=== PATIENT | female | born 1960 | race Caucasian/White ===

== ENCOUNTER 2018-01-07 22:20 | Emergency (ER) | payer OTHER, MEDICARE ==
[~2018-01-07] VITALS: Ht 157.5 cm; Wt 45.1 kg
[2018-01-07 23:02] LABS: MICROSCOPIC NOT IND
[2018-01-07] MEDS ORDERED: ACETAMINOPHEN 500 MG TABLET ONE (23:08)
[2018-01-07] MEDS ORDERED: IBUPROFEN 200 MG TABLET ONE (23:08)
[2018-01-07 23:17] LABS: CULTURE INDICATED? NO
[2018-01-07 23:23] LABS: BASOPHILS # (AUTO) 0.08 x10^3/uL (0-0.1); BASOPHILS % (AUTO) 1 % (0-1); EOSINOPHILS # (AUTO) 0.29 x10^3/uL (0-0.4); EOSINOPHILS % (AUTO) 5 % (1-7); LYMPHOCYTES # (AUTO) 2.44 x10^3/uL (1-3.4); LYMPHOCYTES % (AUTO) 42 % (22-44); MD NO; MEAN CORPUSCULAR HEMOGLOBIN 32.8 pg (27.0-34.8); MEAN CORPUSCULAR HGB CONC 34.1 g/dL (32.4-35.8); MEAN PLATELET VOLUME 8.5 fL (7.4-10.4); MONOCYTES # (AUTO) 0.48 x10^3/uL (0.2-0.8); MONOCYTES % (AUTO) 8 % (2-9); NEUTROPHILS % (AUTO) 43 % (42-75); PLATELET COUNT 335 x10^3/uL (130-400); RED BLOOD COUNT 3.85 x10^6/uL (3.82-5.3); RED CELL DISTRIBUTION WIDTH 12.7 % (9.6-15.2)
[2018-01-07] MEDS ORDERED: ACETAMINOPHEN 500 MG TABLET PO ONE (23:30)
[2018-01-07] MEDS ORDERED: IBUPROFEN 200 MG TABLET PO ONE (23:30)
[2018-01-07 23:35] LABS: CHLORIDE 107 mmol/L (98-107)
[2018-01-07 23:36] LABS: ALANINE AMINOTRANSFERASE 55 U/L (12-78); ALBUMIN 3.7 g/dL (3.4-5.0); ANION GAP 12 mmol/L (5-15); CALCIUM 8.9 mg/dL (8.5-10.1); CREATININE 0.53 mg/dL (0.55-1.02)
[2018-01-07 23:40] LABS: ALKALINE PHOSPHATASE 76 U/L (45-117); BILIRUBIN,TOTAL 0.2 mg/dL (0.2-1.0); TOTAL PROTEIN 6.8 g/dL (6.4-8.2); TROPONIN I < 0.015 ng/mL (0.000-0.045)
[2018-01-08 00:33] VITALS: BP 95/63
== END 2018-01-08 00:50 | disposition home or self-care (01) ==
LOC: ED 23:59
DX: R07.89 Other chest pain (principal); Z87.891 Personal history of nicotine dependence; Z90.49 Acquired absence of other specified parts of digestive tract
CPT/HCPCS: 36415; 71046; 80053; 81003; 84484; 85025; 85379; 93005; 99285

== ENCOUNTER 2018-09-13 20:54 | Observation (INO) | payer BC, MEDICARE ==
[~2018-09-13] VITALS: Ht 157.5 cm; Wt 43.0 kg
[~2018-09-13 20:54] MED LIST: TRAZ50TA66 PO
[2018-09-13 21:27] LABS: BASOPHILS # (AUTO) 0.06 x10^3/uL (0-0.1); BASOPHILS % (AUTO) 1 % (0-1); EOSINOPHILS # (AUTO) 0.06 x10^3/uL (0-0.4); EOSINOPHILS % (AUTO) 1 % (1-7); LYMPHOCYTES # (AUTO) 3.49 x10^3/uL (1-3.4); LYMPHOCYTES % (AUTO) 55 % (22-44); MD NO; MEAN CORPUSCULAR HEMOGLOBIN 32.4 pg (27.0-34.8); MEAN CORPUSCULAR HGB CONC 33.8 g/dL (32.4-35.8); MEAN CORPUSCULAR VOLUME 95.8 fL (80-100); MEAN PLATELET VOLUME 8.6 fL (7.4-10.4); MONOCYTES # (AUTO) 0.31 x10^3/uL (0.2-0.8); MONOCYTES % (AUTO) 5 % (2-9); NEUTROPHILS # (AUTO) 2.45 x10^3/uL (1.8-6.8); NEUTROPHILS % (AUTO) 38 % (42-75); PLATELET COUNT 316 x10^3/uL (130-400); RED BLOOD COUNT 4.45 x10^6/uL (3.82-5.3); RED CELL DISTRIBUTION WIDTH 13.1 % (9.6-15.2)
[2018-09-13 21:35] LABS: INTERNATIONAL NORMALIZED RATIO 0.93 (0.93-1.1); PROTHROMBIN TIME 9.8 Seconds (9.6-11.5)
[2018-09-13 21:36] LABS: ALBUMIN 4.4 g/dL (3.4-5.0); ANION GAP 7 mmol/L (5-15); CALCIUM 8.8 mg/dL (8.5-10.1); CHLORIDE 104 mmol/L (98-107)
[2018-09-13 21:42] LABS: ALANINE AMINOTRANSFERASE 114 U/L (12-78); ALKALINE PHOSPHATASE 104 U/L (45-117); BILIRUBIN,TOTAL 0.2 mg/dL (0.2-1.0); CREATININE 0.68 mg/dL (0.55-1.02); TROPONIN I < 0.015 ng/mL (0.000-0.045)
[2018-09-13] MEDS ORDERED: LORazepam 0.5MG TABLET PO ONE (22:30)
[2018-09-13] MEDS ORDERED: LORazepam 0.5MG TABLET ONE (22:44)
--- NOTE | 2018-09-13 22:45 | NUR ---
STROKE ASSESSMENT DONE. PT NOTED TO HAVE WEAKNESS IN RIGHT SIDE OF BODY, LEFT LOWER FACIAL DROOP, SEE CHARTED. PER PT, LAST NORMAL AT 1400. PT STATED SHE WAS SITTING IN THE TRUCK WITH WHEN SHE NOTICED HER RIGHT SIDE LOWER FACE FEEL LIKE, "IT GAVE OUT AND BECAME NUMB".
[2018-09-13] MEDS ORDERED: WELLBUTRIN PO (23:03)
--- NOTE | 2018-09-13 23:32 | NUR ---
REPORT TO DIANNA, STATED ROOM IS NOT READY, WILL CALL WHEN ROOM IS READY
--- NOTE | 2018-09-14 00:02 | NUR ---
HOSPITALIST IN WIT PT AT THIS TIME. UNABLE TO TRANSPORT PT.
[2018-09-14 00:24] VITALS: BP 108/71
[2018-09-14] MEDS ORDERED: ACETAMINOPHEN 325 MG TABLET PO PRN (00:30)
[2018-09-14] MEDS ORDERED: DOCUSATE 100 MG CAPSULE PO PRN (00:30)
[2018-09-14] MEDS ORDERED: LORazepam 2 MG/ML, 1ML IVPush PRN (01:00)
[2018-09-14 02:30] VITALS: BP 99/65
[2018-09-14 04:51] VITALS: BP 102/67
[2018-09-14] MEDS ORDERED: OMNIPAQUE 350 MG/ML, 100ML BOTTLE ONE (05:28)
[2018-09-14 06:00] VITALS: BP 106/70
[2018-09-14 07:12] VITALS: BP 119/70
[2018-09-14 08:47] LABS: BASOPHILS # (AUTO) 0.05 x10^3/uL (0-0.1); BASOPHILS % (AUTO) 1 % (0-1); EOSINOPHILS # (AUTO) 0.09 x10^3/uL (0-0.4); EOSINOPHILS % (AUTO) 2 % (1-7); LYMPHOCYTES # (AUTO) 1.89 x10^3/uL (1-3.4); LYMPHOCYTES % (AUTO) 45 % (22-44); MD NO; MEAN CORPUSCULAR HEMOGLOBIN 32.4 pg (27.0-34.8); MEAN CORPUSCULAR HGB CONC 34.1 g/dL (32.4-35.8); MEAN CORPUSCULAR VOLUME 94.9 fL (80-100); MEAN PLATELET VOLUME 8.7 fL (7.4-10.4); MONOCYTES # (AUTO) 0.25 x10^3/uL (0.2-0.8); MONOCYTES % (AUTO) 6 % (2-9); NEUTROPHILS % (AUTO) 45 % (42-75); PLATELET COUNT 294 x10^3/uL (130-400); RED BLOOD COUNT 4.31 x10^6/uL (3.82-5.3); RED CELL DISTRIBUTION WIDTH 12.9 % (9.6-15.2)
[2018-09-14] MEDS ORDERED: ASPIRIN 81 MG TABLET CHEW PO/NG SCH (09:00)
[2018-09-14 09:01] LABS: ALANINE AMINOTRANSFERASE 87 U/L (12-78); ALBUMIN 4.1 g/dL (3.4-5.0); ANION GAP 7 mmol/L (5-15); CALCIUM 8.7 mg/dL (8.5-10.1); CHLORIDE 108 mmol/L (98-107); CREATININE 0.67 mg/dL (0.55-1.02)
[2018-09-14 09:05] LABS: ALKALINE PHOSPHATASE 94 U/L (45-117); BILIRUBIN,TOTAL 0.3 mg/dL (0.2-1.0); CHOL/HDL RATIO 2.8; CHOLESTEROL, TOTAL 187 mg/dL (140-239); HDL CHOL % 36 % (28-40); HDL CHOLESTEROL (DIRECT) 67 mg/dL (40-60); LDL CHOLESTEROL,CALCULATED 96 mg/dL (54-169); LDL/HDL RATIO 1.4 (0.5-3.0); TOTAL PROTEIN 7.3 g/dL (6.4-8.2); TRIGLYCERIDES 122 mg/dL (50-200); VLDL CHOLESTEROL 24 mg/dL (0-25)
[2018-09-14] MEDS ORDERED: LORazepam 2 MG/ML, 1ML IVPush ONE (12:30)
[2018-09-14 13:22] VITALS: BP 111/73
[2018-09-14] MEDS ORDERED: ATOR10TA9 PO (17:48)
[2018-09-14] MEDS ORDERED: ASPI-515 PO (17:48)
[2018-09-14] MEDS ORDERED: ATORVASTATIN 10 MG TABLET PO SCH (21:00)
== END 2018-09-14 18:45 | disposition home or self-care (01) ==
LOC: ED 22:46 → EDIP 23:08 → UNDOADMIN 23:08 → INTOOBSV 23:34 → EDIP 23:34 → 4WST 09-14 00:25
PROVIDERS: ADMIT Family Medicine; ATTEND Family Medicine
DX: G45.9 Transient cerebral ischemic attack, unspecified (principal); F33.9 Major depressive disorder, recurrent, unspecified; F10.129 Alcohol abuse with intoxication, unspecified; F41.1 Generalized anxiety disorder; E78.5 Hyperlipidemia, unspecified; H35.30 Unspecified macular degeneration; H54.8 Legal blindness, as defined in USA; Z95.811 Presence of heart assist device; Y90.8 Blood alcohol level of 240 mg/100 ml or more; Z82.61 Family history of arthritis; Z87.891 Personal history of nicotine dependence; F32.9 Major depressive disorder, single episode, unspecified; F41.9 Anxiety disorder, unspecified; I25.2 Old myocardial infarction; N39.0 Urinary tract infection, site not specified; R29.810 Facial weakness
CPT/HCPCS: 36415; 70450; 70496; 70498; 70551; 76700; 80053; 80061; 80074; 80307; 84484; 85025; 85610; 85730; 93005; 93306; 96374; 97165; 99285; G0378; J2060; Q9967